=== PATIENT | male | born 1980 | race Two or more races ===

== ENCOUNTER → 2017-02-15 | Outpatient (CLI) | payer MEDICAID | LOC: BMCIMAGING 09:35 | PROVIDERS: ATTEND Family Medicine | DX: M25.561 Pain in right knee (principal) ==

== ENCOUNTER → 2017-04-16 | Outpatient (CLI) | payer MEDICAID | LOC: FIMAGING 08:06 | PROVIDERS: ATTEND Family Medicine | DX: M51.36 Other intervertebral disc degeneration, lumbar region (principal) ==

== ENCOUNTER 2017-07-15 12:58 | Emergency (ER) | payer MEDICAID ==
[2017-07-15 13:10] VITALS: BP 125/78
--- NOTE | 2017-07-15 13:47 | EDPHY ---
H & P Time Seen by Provider: 07/15/17 13:20 HPI/ROS: CHIEF COMPLAINT: Back pain HISTORY OF PRESENT ILLNESS: Patient is a 28-year-old male with ongoing low back pain. The patient had diskectomy in 2014. He has been having ongoing pain. He had an MRI on 04/16/2017. This showed diskitis at L4 and L5. He subsequently had an injection at that location by Dr. Echols. This did improve his symptoms but his symptoms have now returned. He has low back pain. He feels as though it radiates into his legs. He feels as though his legs are slightly weak. No incontinence of urine or stool. No fevers or chills. REVIEW OF SYSTEMS: My complete review of systems is negative except as mentioned in the HPI. Past Medical/Surgical History: Includes low back pain, depression, reflux Past surgical history: Includes lumbar injection Social history: The patient does not smoke. Smoking Status: Never smoked Physical Exam: 36.4, 125/78, 89, 16, 96% on room air GENERAL: Well-appearing, in no acute distress, alert. HEENT: Eyes normal to inspection, normal pharynx, no signs of dehydration. NECK: Supple. Normal RESPIRATORY: Clear to auscultation bilaterally, no rales, rhonchi or wheezing. CVS: Regular rate and rhythm, no rubs, murmurs, or gallops. ABDOMEN: Soft, nontender, nondistended, no organomegaly. No pulsatile mass BACK: Normal to inspection, no CVA tenderness. No spinal tenderness palpation. No palpable mass SKIN: Normal color, no rash, warm, dry. No pallor. EXTREMITIES: No pedal edema, no calf tenderness, no Homans sign or cords, no joint swelling. NEURO/PSYCH: Alert and oriented x3, normal mood and affect, normal motor sensory exam. Negative leg raise bilaterally. Constitutional: Initial Vital Signs Temperature (C) 36.4 C 07/15/17 13:08 Heart Rate 89 07/15/17 13:08 Respiratory Rate 16 07/15/17 13:08 Blood Pressure 125/78 H 07/15/17 13:08 O2 Sat (%) 96 07/15/17 13:08 O2 Delivery Mode Room Air Allergies/Adverse Reactions: No Known Allergies Allergy (Unverified 07/15/17 13:03) Home Medications: Medication Instructions Recorded Carafate 1 GM (*) 07/15/17 Lexapro 07/15/17 [place] 10-325 Tablet 07/15/17 Omeprazole 07/15/17 Medical Decision Making ED Course/Re-evaluation: In the emergency department I discussed possible etiologies with the patient. I answered all his questions. At this time I do not feel he needs repeat MRI or other imaging. He does not appear toxic. Patient will be treated with a course of steroid. He was given 60 mg of prednisone orally. Will be given a prescription for 4 more days. He will follow up with Dr. Echols. He is given warnings prior to leaving. He will return with worsening symptoms. Differential Diagnosis: My differential includes but is not limited to muscle strain, disc herniation, diskitis, epidural abscess, epidural hematoma Departure - Departure Disposition: Home, Routine, Self-Care Clinical Impression: Low back pain Qualifiers: Chronicity: acute Back pain laterality: bilateral Sciatica presence: without sciatica Qualified Code(s): M54.5 - Low back pain Condition: Good Instructions: Acute Low Back Pain (ED) Additional Instructions: Return with increasing pain, weakness, numbness, fever or any other concerns. Referrals: Cindy Hahn DO [Primary Care Provider] - 2-3 days, if not improved Onesimo Wilkerson [Other] - As per Instructions
[2017-07-15] MEDS ORDERED: predniSONE 20 MG TAB PO ONE (13:48)
== END 2017-07-15 14:00 | disposition home or self-care (01) ==
DX: M54.5 Low back pain (principal)
CPT/HCPCS: J7512

== ENCOUNTER → 2017-12-16 | Outpatient (CLI) | payer MEDICAID | LOC: FIMAGING 09:25 | PROVIDERS: ATTEND Physician Assistant | DX: K42.9 Umbilical hernia without obstruction or gangrene (principal) ==

== ENCOUNTER 2017-12-30 16:51 | Emergency (ER) | payer OTHER, MEDICAID ==
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
[2017-12-30] MEDS ORDERED: NS 1,000 ML IV ONE (17:11)
[2017-12-30] MEDS ORDERED: HYDROCOD/APAP 5/325 PREPACK#6 BTL TAKEHOME ONE (18:52)
[2017-12-30 19:02] VITALS: BP 132/77
== END 2017-12-30 19:04 | disposition home or self-care (01) ==
LOC: EDUNIT#
DX: S16.1XXA Strain of muscle, fascia and tendon at neck level, initial encounter (principal); V59.40XA Driver of pick-up truck or van injured in collision with unspecified motor vehicles in traffic accident, initial encounter; Y92.9 Unspecified place or not applicable; Y93.9 Activity, unspecified; Y99.9 Unspecified external cause status

== ENCOUNTER → 2018-02-06 | Outpatient (CLI) | payer MEDICAID | LOC: FCPNEURO 21:00 | PROVIDERS: ATTEND Student in an Organized Health Care Education/Training Program | DX: G47.33 Obstructive sleep apnea (adult) (pediatric) (principal) ==

== ENCOUNTER → 2018-02-25 | Outpatient (CLI) | payer MEDICAID | LOC: FIMAGING 08:22 | PROVIDERS: ATTEND Family Medicine | DX: M22.41 Chondromalacia patellae, right knee (principal); M76.891 Other specified enthesopathies of right lower limb, excluding foot ==

== ENCOUNTER → 2018-06-04 | Outpatient (CLI) | payer MEDICAID | LOC: FIMAGING 09:11 | PROVIDERS: ATTEND Family Medicine | DX: M50.321 Other cervical disc degeneration at C4-C5 level (principal); M48.02 Spinal stenosis, cervical region ==

== ENCOUNTER 2018-06-26 10:56 | Day surgery (SDC) | payer MEDICAID ==
[2018-06-26] MEDS ORDERED: fentaNYL 100 MCG/2 ML INJ IVP PRN (11:10)
[2018-06-26] MEDS ORDERED: FLUMAZENIL 0.5 MG/5 ML MDV IVP PRN (11:10)
[2018-06-26] MEDS ORDERED: MIDAZOLAM 2 MG/2 ML VIAL IVP PRN (11:10)
[2018-06-26] MEDS ORDERED: NALOXONE HCL 0.4 MG/ML INJ IVP PRN (11:10)
[2018-06-26] MEDS ORDERED: MEPERIDINE 25 MG/ML SYR IVP PRN (11:10)
[2018-06-26] MEDS ORDERED: NS 1,000 ML IV SCH (11:15)
[2018-06-26] MEDS ORDERED: LIDOCAINE 1% 300 MG/30 ML SDV ONE (12:10)
[2018-06-26] MEDS ORDERED: TRIAMCINOLONE ACETONIDE 200 MG/5 ML MDV IM ONE (12:11)
[2018-06-26] MEDS ORDERED: IOPAMIDOL (ISOVUE-M 300) 15 ML VIAL ONE (12:11)
--- NOTE | 2018-06-26 12:21 | PDPROPOC ---
Sedation Plan of Care Sedation Plan of Care: vital signs stable, mental status noted, patient educated of risks, benefits, alternatives, patient can tolerate sedation ASA Classification: ASA 2 Planned drugs: fentanyl, midazolam Mallampati Score: Class 2 Mallampati Reference Image: Patient passed 3-3-2 rule?: Yes
--- NOTE | 2018-06-26 12:21 | PDGENHP ---
History & Physical Chief Complaint: neck pain History of Present Illness: neck pain with bilateral arm numbness and tingling. Pertinent Past, Social, Family History: tonsilectomy, hernia, asthma. Relevant Physical Exam: has a hard time holding head up Cardiorespiratory Assessment: rrr, cta
[2018-06-26] MEDS ORDERED: ONDANSETRON 4 MG/2 ML VIAL IVP PRN (13:00)
--- NOTE | 2018-06-26 13:06 | PDRADPN ---
Radiology Procedure Note Date of Procedure: 06/26/18 Radiologist: Teressa Pineda Anesthesia: IV Sedation Pre-op Diagnosis: neck pain Post-op Diagnosis: same Indication: radiculopathy Procedure: cervical CEDRIC Inf/Abcess present in the surg proc area at time of surgery?: No
[2018-06-26 14:25] VITALS: BP 126/84
== END 2018-06-26 14:30 | disposition home or self-care (01) ==
LOC: FIMAGING 10:56
PROVIDERS: ATTEND Radiology Diagnostic Radiology
DX: M54.12 Radiculopathy, cervical region (principal); J45.909 Unspecified asthma, uncomplicated
CPT/HCPCS: J2250; J2310; J3010; J3301; Q9967

== ENCOUNTER → 2018-07-08 | Outpatient (CLI) | payer MEDICAID | LOC: FIMAGING 08:43 | PROVIDERS: ATTEND Physician Assistant Surgical | DX: M54.5 Low back pain (principal); G43.809 Other migraine, not intractable, without status migrainosus; H53.8 Other visual disturbances; R51 Headache; R93.0 Abnormal findings on diagnostic imaging of skull and head, not elsewhere classified; V89.2XXA Person injured in unspecified motor-vehicle accident, traffic, initial encounter | CPT/HCPCS: 70551-PN ==

== ENCOUNTER 2018-07-13 07:12 | Day surgery (SDC) | payer MEDICAID ==
[2018-07-13] MEDS ORDERED: MIDAZOLAM 2 MG/2 ML VIAL IVP PRN (07:19)
[2018-07-13] MEDS ORDERED: NALOXONE HCL 0.4 MG/ML INJ IVP PRN (07:19)
[2018-07-13] MEDS ORDERED: fentaNYL 100 MCG/2 ML INJ IVP PRN (07:19)
[2018-07-13] MEDS ORDERED: FLUMAZENIL 0.5 MG/5 ML MDV IVP PRN (07:19)
[2018-07-13] MEDS ORDERED: NS 1,000 ML IV SCH (07:30)
[2018-07-13] MEDS ORDERED: IOPAMIDOL (ISOVUE-M 300) 15 ML VIAL ONE (07:52)
[2018-07-13] MEDS ORDERED: ONDANSETRON 4 MG/2 ML VIAL IVP PRN (09:15)
[2018-07-13] MEDS ORDERED: ACETAMINOPHEN 325 MG TAB PO PRN (09:15)
--- NOTE | 2018-07-13 09:31 | PDPROPOC ---
Sedation Plan of Care ASA Classification: ASA 2 Mallampati Score: Class 2 Mallampati Reference Image:
--- NOTE | 2018-07-13 09:31 | PDRADPRE ---
Radiology History & Physical Indication for procedure: back pain Home medications: Fioricet (*) mg PO PRN PRN 06/23/18 [Last Taken Unknown] Percocet 5-325 mg Tablet 5 - 325 mg PO Q8 06/23/18 [Last Taken 07/13/18] traMADol 100 mg PO DAILY 06/23/18 [Last Taken 07/13/18] Allergies/Adverse Reactions: No Known Allergies Allergy (Verified 07/12/18 16:24) Mental status: A&Ox3
--- NOTE | 2018-07-13 09:31 | PDRADPN ---
Radiology Procedure Note Date of Procedure: 07/13/18 Radiologist: Garry Willis Anesthesia: IV Sedation Pre-op Diagnosis: back pain Post-op Diagnosis: same Procedure: L4-L5 CEDRIC Inf/Abcess present in the surg proc area at time of surgery?: No
[2018-07-13] MEDS ORDERED: TRIAMCINOLONE ACETONIDE 200 MG/5 ML MDV IM ONE (10:39)
[2018-07-13 10:51] VITALS: BP 115/74
== END 2018-07-13 10:14 | disposition home or self-care (01) ==
LOC: FIMAGING 07:12
PROVIDERS: ATTEND Physician Assistant Surgical
DX: M54.16 Radiculopathy, lumbar region (principal)
CPT/HCPCS: J2250; J2310; J3010; J3301; Q9967

== ENCOUNTER → 2018-09-22 | Outpatient (CLI) | payer MEDICAID | LOC: FIMAGING 11:24 ==